=== PATIENT | female | born 1970 | race Caucasian/White ===

== ENCOUNTER 2017-07-20 08:39 | Observation (INO) | payer BC, SELFPAY ==
[2017-07-20 09:22] LABS: #Eosinphils 0.2 thou/uL (0.0-0.7); #Lymphocytes 1.1 thou/uL (1.20-3.40); #Monocytes 0.5 thou/uL (0.11-0.59); %Basophils 0.2 % (0.0-1.0); %Eosinophils 1.5 % (0.0-10.0); %Lymphocytes 7.8 % (21.0-51.0); %Monocytes 3.4 % (0.0-10.0); %Neutrophils 87.2 % (42.0-75.0); Hemoglobin 14.8 g/dL (12.0-16.0); Mean Corpuscular HGB CONC 32.9 g/dL (32.0-36.0); Mean Corpuscular Hemoglobin 30.2 pg (27.0-31.0); Mean Corpuscular Volume 91.6 fl (81.0-99.0); Mean Platelet Volume 6.8 fL (7.4-10.4); Platelet Count 348 thou/uL (130-400); RBC Distribution Width 12.6 % (11.5-14.5); White Blood Cell (WBC) Count 13.7 thou/uL (4.8-10.8)
[2017-07-20 09:33] LABS: PTT 28.4 SEC (22.9-36.1); Prothrombin Time 13.8 SEC (12.0-14.7)
[2017-07-20 09:43] LABS: D-Dimer Test Less than 0.27 *mcg/mL (0.27-0.43)
[2017-07-20 09:45] LABS: Digoxin Less than 0.15 ng/mL (0.8-2.0)
[2017-07-20 09:51] LABS: CKMB 1.5 ng/mL (0-6.6); Troponin I Less than 0.010 ng/mL (< 0.028)
[2017-07-20 09:55] LABS: ALT (SGPT) 19 U/L (8-55); AST (SGOT) 29 U/L (5-34); Albumin 4.4 g/dL (3.5-5.0); Alkaline Phosphatase 155 U/L (40-150); Anion Gap 18 mmol/L (10-20); BUN (Urea Nitrogen) 18 mg/dL (7.0-18.7); Bilirubin, Total 0.8 mg/dL (0.2-1.2); CK (CPK) 101 U/L (29-168); Calc. Creatinine Clearance 0 mL/min (70-130); Calcium 9.8 mg/dL (7.8-10.44); Carbon Dioxide 23 mmol/L (22-29); Chloride 102 mmol/L (98-107); Estimated GFR-MDRD 57; Globulin 5.6 g/dL (2.4-3.5); Glucose 152 mg/dL (70-105); Lipase 6 U/L (8-78); Potassium 5.1 mmol/L (3.5-5.1); Sodium 137 mmol/L (136-145)
--- NOTE | 2017-07-20 10:42 | RAD ---
CHEST 1 VIEW: HISTORY: A 46-year-old female with a history of chest pain and weakness and vomiting. FINDINGS: Heart size is within normal limits. Monitor leads overlie the chest. IMPRESSION: No acute intrathoracic disease. Mild bilateral pleural thickening. POS: [facility]
--- NOTE | 2017-07-20 11:04 | CT ---
CT ANGIOGRAM CHEST WITH 3D RENDERING: HISTORY: A 46-year-old female with a history of chest pain. FINDINGS: Minimal dependent changes in the posterior lower lung zones. No significant Ct evidence for acute pu lmonary embolism. No pericardial effusion or pleural effusion. No significant acute pulmonary paren chymal disease. No mediastinal mass or adenopathy. Visualized upper abdomen is unremarkable. IMPRESSION: No significant CT evidence for acute pulmonary embolism. POS: [facility]
[2017-07-20] MEDS ORDERED: Mag-Al 1200 mg/1200 mg/30 ML UDCUP PO PRN (11:21)
[2017-07-20] MEDS ORDERED: Calcium Carbonate 500 MG ChewTAB PO PRN (11:21)
[2017-07-20] MEDS ORDERED: Ondansetron HCl/PF 4 MG/2 ML Vial IVP PRN (11:21)
[2017-07-20] MEDS ORDERED: cloNIDine 0.1 MG TAB PO PRN (11:21)
[2017-07-20] MEDS ORDERED: Acetaminophen 325 MG TAB PO PRN (11:21)
[2017-07-20] MEDS ORDERED: Nitroglycerin 0.4 MG TAB (25 Tab Bottle) PO PRN (11:21)
[2017-07-20] MEDS ORDERED: Lorazepam 1 MG TAB PO PRN (11:21)
[2017-07-20] MEDS ORDERED: Senokot 8.6 MG TAB PO PRN (11:21)
[2017-07-20] MEDS ORDERED: Benzonatate 100 MG CAP PO PRN (11:21)
[2017-07-20] MEDS ORDERED: hydrALAZINE 20 MG/ML VIAL SLOW IVP PRN (11:21)
[2017-07-20] MEDS ORDERED: Bisacodyl 5 MG TAB PO PRN (11:21)
[2017-07-20] MEDS ORDERED: Diabetic Tussin 200 MG/10 ML UDCUP PO PRN (11:21)
[2017-07-20 12:17] VITALS: BMI 50.8
[2017-07-20 12:18] LABS: Cardiac Risk 3.7 (Less than 4.5)
[2017-07-20 12:22] LABS: Troponin I Less than 0.010 ng/mL (< 0.028)
[2017-07-20 12:38] LABS: Hemoglobin A1c 6.4 % (4.0-6.0)
[2017-07-20] MEDS ORDERED: ISOVUE-370 76%-LOCM 1 ML ONE (12:43)
--- NOTE | 2017-07-20 12:50 | HP ---
DATE OF ADMISSION: 07/20/2017 PRIMARY CARE PHYSICIAN: None. CHIEF COMPLAINT: Chest pain, nausea, and vomiting. HISTORY OF PRESENTING ILLNESS: Ms. Jose is a 46-year-old female without any significant past medical history because mainly of lack of any medical care, who came to the emergency room with the above-me ntioned complaint. History is mainly obtained by the patient herself. Electronic medical records ortiz ve been reviewed. Case has been discussed with the admitting ER physician. Ms. Jose reports that while she was getting off of work today, she had sudden onset of sharp chest pa in on the left side. 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 She was waiting on her coworke r to drive her home. 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 She has never had these sympt oms before. She has no recent illnesses and has been feeling actually very well up until this episod e this morning. Her chest pain was kind of sharp and lasted until she was brought here. It was loca billy in the left upper chest, traveling down towards the center. It was associated with nausea and vo miting x3. She could not recall any exacerbating or relieving symptoms. It was not associated with any diaphoresis, palpitations, or shortness of breath. She has not been having any flu-like symptoms recently. She denies any orthopnea, PND or edema. She denies any diarrhea or abdominal pain. She denies any dysuria, frequency or urgency. She has not sought any medical care in multiple years because she says "the doctor is for sick people ." She has strong family history of stroke in her father as well as almost all the family members wi th diabetes, but has never gotten herself checked. Upon presentation to the emergency room, her blood pressure was high at 175/112 with temperature of 9 8.9. Her initial workup included chest x-ray which was unremarkable. EKG had some repolarization ch anges. Cardiac enzymes were normal. She had mildly elevated D-dimer. For this reason, she underwen t a CT angio which was negative for any pulmonary embolism. She is now being admitted for further ri sk stratification. PAST MEDICAL HISTORY: None that the patient know of. PAST SURGICAL HISTORY: 1. Appendectomy 2. Cholecystectomy. SOCIAL HISTORY: She has no history of drug, tobacco or alcohol abuse. FAMILY HISTORY: Significant for stroke in her father who had last year. He was an active smoke r. Multiple family members with diabetes and hypertension. She denies any cardiac history in her fa adolfo members. ALLERGIES: No known medication allergies. CURRENT MEDICATIONS: None. REVIEW OF SYSTEMS: The following complete review of systems was negative, unless otherwise mentioned in the HPI or below: Constitutional: Weight loss or gain, ability to conduct usual activities. Skin: Rash, itching. Eyes: Double vision, pain. ENT/Mouth: Nose bleeding, neck stiffness, pain, tenderness. Cardiovascular: Palpitations, dyspnea on exertion, orthopnea. Respiratory: Shortness of breath, wheezing, cough, hemoptysis, fever or night sweats. Gastrointestinal: Poor appetite, abdominal pain, heartburn, nausea, vomiting, constipation, or diarr hea. Genitourinary: Urgency, frequency, dysuria, nocturia. Musculoskeletal: Pain, swelling. Neurologic/Psychiatric: Anxiety, depression. Allergy/Immunologic: Skin rash, bleeding tendency. It is negative except for those mentioned in the history and physical. PHYSICAL EXAMINATION: VITAL SIGNS: Most recent vital signs include temperature 98.5, pulse of 101, respirations 18, satura ting 95% on room air, and blood pressure 159/74. GENERAL: No acute distress. She does appear a little bit tired and sleepy, but she is awake, alert, and oriented x3. HEENT: Mucous membrane is moist and pink. No oropharyngeal exudate or erythema. Head is normocepha lic, atraumatic. Pupils are equal, reactive to light and accommodation. Extraocular movements intac t. NECK: Supple without any lymphadenopathy, JVD or bruit. CHEST: Clear to auscultation without any wheezing, rales or rhonchi. Rhythm is regular without any murmur, rubs or gallops. ABDOMEN: Morbidly obese, soft, nontender, nondistended with positive bowel sounds. EXTREMITIES: Free of any cyanosis, clubbing, or edema. NEUROLOGIC: Examination is nonfocal. SKIN: Free of any rashes or bruises. Feels warm and dry to touch. PSYCHIATRIC: Flat affect. LABORATORY DATA AND IMAGING DATA: 1. Her CBC shows WBCs elevated at 13.7 with 87% neutrophils. 2. Her D-dimer actually was less than 0.27. 3. Serum chemistries show blood sugar of 152, alkaline phosphatase 155. Cardiac enzymes negative. BNP normal. Lipase negative. 4. Chest x-ray by my review has no evidence to suggest pulmonary infiltrate, effusion or edema. 5. CT angio is negative for any PE. 6. Twelve lead EKG, Q-inverted T waves and leads are heard and AVF. QTC of 461 milliseconds. Sinus tachycardia at 102 beats per minute by my review. IMPRESSION AND PLAN: 1. Chest pain. The patient has multiple risk factors for coronary artery disease including morbid o besity family history and uncontrolled hypertension and her age of course. At this time, we will con tinue to trend serial cardiac enzymes and obtain a nuclear medicine stress test for further risk stra tification. We will obtain lipid panel. We will start her on full dose aspirin and started her on a beta nathen for blood pressure control as well as cardioprotective effects. Further management morteza l depend upon her clinical course. 2. Family history of diabetes and hyperglycemia. We will check hemoglobin A1c. 3. Morbid obesity. 4. Hypertension. The patient will be started on medications. I have counseled her with regards to this and emphasized the need for medication compliance and followup with a physician as an outpatient . She does appear quite nonchalant about this. 5. Leukocytosis. Influenza swab has been done and is unremarkable. No other evidence to suggest an y infection. However, we will check her urinalysis especially because she also has had some nausea a nd vomiting. 6. Code status: FULL CODE. 7. Deep venous thrombosis and gastrointestinal prophylaxis, on p.r.n. medications. DISPOSITION: Ms. Jose is being admitted for further workup and rule out acute coronary syndrome for chest pain. Further management will depend upon her clinical course. Estimated length of stay at [facility] time is less than 2 midnights.
[2017-07-20] MEDS: Sodium Chloride 0.9% 1,000 ML IV SCH (15:32)
--- NOTE | 2017-07-20 17:44 | CT ---
CT ABDOMEN AND PELVIS WITHOUT CONTRAST: Comparison: CTA chest 07-20-17 at 9:28 a.m. History: Vomiting, nausea. Technique: Multiple contiguous axial images were obtained in a CT of the abdomen and pelvis without c ontrast. Coronal reformats were performed. FINDINGS: The patient is status post cholecystectomy. No biliary dilatation is seen. Contrast is seen in both r enal collecting systems and in the urinary bladder from recent contrast examination. No free air, lane e fluid, or stranding changes are seen in the abdomen or pelvis. The liver, kidneys, adrenal glands, spleen and pancreas are unremarkable, although evaluation is limi billy without IV contrast. There is scattered diverticula in the colon. The small bowel is unremarkable. The reproductive organs are unremarkable. No abdominal or pelvis lymphadenopathy are seen. Degenerative changes are seen in the spine. The visualized inferior thorax and abdominal wall soft tissues are unremarkable. IMPRESSION: 1. No evidence of acute intraabdominal/pelvic adenopathy. 2. Diverticulosis without evidence of acute diverticulitis. POS: [facility]
[2017-07-20] MEDS: Metoprolol Tartrate 25 MG TAB PO SCH (20:34)
[2017-07-20] MEDS: Famotidine 20 MG TAB PO SCH (20:34)
[2017-07-20 20:50] LABS: Bilirubin Negative (Negative); Blood, Urine Negative (Negative); Clarity CLOUDY (Clear); Glucose, Urine (Dipstick) Negative (Negative); Leukocyte Negative (Negative); Nitrite Negative (Negative); Protein, Urine (Dipstick) Negative (Neg-Trace)
[2017-07-20 20:53] LABS: Specific Gravity, Urine 1.048 (1.002-1.036)
[2017-07-20 20:54] LABS: Bacteria/HPF 3+ HPF (None Seen); Hyaline Casts/LPF 4-6 HYALINE CAST LPF (0-3 Hyaline); Pathc Cast-AUWi Flag 0.54 (0-2.49)
[2017-07-20 21:03] LABS: RBC/HPF 0-3 HPF (0-3)
[2017-07-21] MEDS: Sodium Chloride 0.9% 1,000 ML IV SCH (04:14)
[2017-07-21 05:07] LABS: #Eosinphils 0.2 thou/uL (0.0-0.7); #Lymphocytes 1.6 thou/uL (1.20-3.40); #Monocytes 0.5 thou/uL (0.11-0.59); %Eosinophils 3.4 % (0.0-10.0); %Lymphocytes 30.4 % (21.0-51.0); %Monocytes 9.7 % (0.0-10.0); %Neutrophils 56.6 % (42.0-75.0); Hemoglobin 13.1 g/dL (12.0-16.0); Mean Corpuscular HGB CONC 33.5 g/dL (32.0-36.0); Mean Corpuscular Volume 92.6 fl (81.0-99.0); Mean Platelet Volume 6.4 fL (7.4-10.4); Platelet Count 289 thou/uL (130-400); RBC Distribution Width 12.3 % (11.5-14.5); Red Blood Cell (RBC) Count 4.22 mill/uL (4.20-5.40); White Blood Cell (WBC) Count 5.2 thou/uL (4.8-10.8)
[2017-07-21 05:23] LABS: Anion Gap 11 mmol/L (10-20); BUN (Urea Nitrogen) 13 mg/dL (7.0-18.7); Calc. Creatinine Clearance 186 mL/min (70-130); Calcium 8.6 mg/dL (7.8-10.44); Carbon Dioxide 24 mmol/L (22-29); Chloride 104 mmol/L (98-107); Estimated GFR-MDRD 78; Glucose 117 mg/dL (70-105); Potassium 4.2 mmol/L (3.5-5.1); Sodium 135 mmol/L (136-145)
[2017-07-21] MEDS ORDERED: Enoxaparin Sodium 40 MG/0.4 ML SYRINGE SC SCH (09:00)
[2017-07-21] MEDS ORDERED: Aspirin 325 MG TAB PO SCH (09:00)
--- NOTE | 2017-07-21 12:23 | NM ---
MYOCARDIAL PERFUSION EVALUATION: INDICATION: Chest pain. RADIOPHARMACEUTICAL: 30 mCi of Technetium 99m sestamibi IV with stress and 30 mCi of Technetium 99m sestamibi IV with rest . FINDINGS: When comparing the rest and stress images, there is no definite reversible myocardial perfusion defec t. Wall motion and thickening appear within normal limits. The LVEF appears slightly diminished at 48%. IMPRESSION: 1. No scintigraphic evidence to of reversible myocardial ischemia. 2. The left ventricular ejection fraction is estimated at 48%. POS: [facility]
[2017-07-21 12:33] VITALS: BP 144/74; TEMP 98.1
[2017-07-21] MEDS: Famotidine 20 MG TAB PO SCH (14:02)
[2017-07-21] MEDS: Metoprolol Tartrate 25 MG TAB PO SCH (14:02)
[2017-07-21] MEDS ORDERED: glipiZIDE 5 MG TAB PO SCH (16:30)
--- NOTE | 2017-07-21 21:55 | DIS ---
DATE OF ADMISSION: 07/20/2017 DATE OF DISCHARGE: 07/21/2017 CONDITION AT THE TIME OF DISCHARGE: Stable and improved. DISCHARGE DIAGNOSES: 1. Chest pain, noncardiac. 2. Viral gastroenteritis. 3. New diagnosis of hypertension. 4. New diagnosis of diabetes mellitus. 5. Morbid obesity. 6. Early urinary tract infection. PRIMARY CARE PHYSICIAN: None. The patient is instructed to follow up and find herself a new PCP. DISCHARGE MEDICATIONS: 1. Glipizide 5 mg p.o. b.i.d. 2. Coreg 6.25 mg p.o. b.i.d. 3. Levofloxacin 500 mg daily for 4 more days. CONSULTATIONS: None. PROCEDURES IN THE HOSPITAL: Include; 1. CT angio of the thorax, which is negative for any evidence of pulmonary embolism. 2. CT scan of the abdomen and pelvis without any contrast, which is negative for any acute intraabdo apolinar pathology. She has evidence of diverticulosis without diverticulitis. 3. Nuclear medicine stress test, which shows no evidence of reversible or fixed defect. Her ejectio n fraction is estimated at 48%. HISTORY OF PRESENT ILLNESS: Ms. Jose is a 46-year-old female without any medical care in [facility] and without any significant past medical history who presented to the emergency room with complai nts of one episode of chest pain associated with vomiting. Upon presentation, she was quite hyperten sive with a blood pressure of 175/112. Her initial workup was unremarkable. She was admitted for fu rther workup and rule out acute coronary syndrome. Please see admission history and physical dictate d by myself for further details. HOSPITAL COURSE: The patient had a CT angio done in the emergency room, which was negative for pulmo nary embolism. Serial cardiac enzymes were done and were normal. She underwent a nuclear medicine s tress test, which was also normal. Her cholesterol panel was checked, which were normal. The patien t had episodes of vomiting at the time of the stress test and for this reason, CT scan of the abdomen and pelvis was obtained. This had no intraabdominal pathology. Her symptoms did not happen again. She was chest pain free and did not have any abdominal pain, nausea, vomiting or diarrhea. She was, however, found to be hypertensive and was started on beta-nathen at this point. She also g ave family history of diabetes, significantly in multiple family members and for this reason, hemoglo bin A1c was checked, which was elevated to 6.4. At this time, she is being started on glipizide twic e a day. I have discussed this in detail with her. She has been made aware of the importance of out patient followup with regards to her new diagnosis of hypertension and diabetes mellitus. At this ti me, however, acute coronary syndrome has been ruled out and she will be discharged home. The patient's urine was somewhat consistent with early urinary tract infection. It has been sent for culture. She has been empirically given levofloxacin, given her symptoms of vomiting on presentatio n. She also had mild leukocytosis of WBCs 13.7 with 87% neutrophils upon presentation included. Her leukocytosis has since improved. PHYSICAL EXAMINATION: She was seen and examined prior to discharge. VITAL SIGNS: This morning, includes temperature 98.1, pulse of 70, respirations 18, saturating 93% o n room air and blood pressure 144/74. GENERAL: No acute distress. CHEST: Clear to auscultation. Rate and rhythm is regular. ABDOMEN: Soft, nontender and nondistended. LABORATORY DATA: Sodium 135, blood sugar 117, hemoglobin A1c 6.4 and troponin less than 0.01 x3. BN P less than 10.
--- NOTE | 2017-08-25 11:25 | STRESS ---
Acquisition Time: 2017-07-21 09:03:04 Total Exercise Time: 00:04:00 Test Indications: CHEST PAIN Medications: Protocol: ADENOSINE Max HR: 103 BPM 59% of Pred: 173 BPM Max BP: 132/086 mmHG Max Work Load: 1.0 METS RESTING ECG: NORMAL SINUS RHYTHM AT 71 BPM SYMPTOMS: SHORTNESS OF BREATH APPROPRIATE BLOOD PRESSURE RESPONSE FOR ADENOSINE ECTOPY: [place]ACH ECG RESPONSE: NO SIGNIFICANT CHANGES INTERPRETATION: AWAIT NUCLEAR IMAGES FOR DEFINITIVE DIAGNOSIS Confirmed by YON MOHAMUD ([id number]), videotape editor MIHAI LEYVA ([id number]) on 08/25/2017 11:24:44 AM Referred By: MD Alis Rivera Confirmed By:YON MOHAMUD
--- NOTE | 2017-09-18 14:38 | EKG ---
Test Reason : Blood Pressure : / mmHG Vent. Rate : 102 BPM Atrial Rate : 102 BPM P-R Int : 164 ms QRS Dur : 088 ms QT Int : 354 ms P-R-T Axes : 039 044 005 degrees QTc Int : 461 ms Sinus tachycardia Otherwise normal ECG Confirmed by RODRÍGUEZ BORGES, JENNIFER Somers ([id number]), marketing editor DIGNA BENTON ([id number]) on 09/18/2017 2:38:07 PM Referred By: Confirmed By:JENNIFER ARREGUIN MD
== END 2017-07-21 16:10 | disposition home or self-care (01) ==
LOC: ERS 08:39 → 2SW 10:29
PROVIDERS: ADMIT Internal Medicine; ATTEND Internal Medicine
DX: R07.89 Other chest pain (principal); A08.4 Viral intestinal infection, unspecified; I10 Essential (primary) hypertension; E11.9 Type 2 diabetes mellitus without complications; N39.0 Urinary tract infection, site not specified; E66.01 Morbid (severe) obesity due to excess calories; Z68.43 Body mass index [BMI] 50.0-59.9, adult; Z82.3 Family history of stroke; Z91.018 Allergy to other foods; Z90.49 Acquired absence of other specified parts of digestive tract
CPT/HCPCS: 36415; 71045; 71275; 74176; 78452; 80048; 80053; 80061; 80162; 81001; 82550; 82553; 83036; 83690; 83880; 84484; 85025; 85379; 85610; 85730; 87086; 87804; 93005; 93017; 94760; 96374; A9500; G0378; J0153; J1650; J1956; J2405

== ENCOUNTER 2019-01-03 08:53 | Emergency (ER) | payer BC ==
[2019-01-03] MEDS ORDERED: Ketorolac Tromethamine 30 MG/ML VIAL ONE (09:22)
--- NOTE | 2019-01-03 09:31 | RAD ---
XR Knee Lt 4 View STANDARD HISTORY: Knee pain COMPARISON: None. FINDINGS: There are arthritic changes of the knee with spurring of the medial compartment and mild marsha int space narrowing, there is minimal patellofemoral spur formation is seen. No Joint effusion or fracture. IMPRESSION: Mild arthritic changes of the knee mainly related to medial compartment degenerative bravo yonny
== END 2019-01-03 10:07 | disposition home or self-care (01) ==
LOC: ERS 08:53
DX: M17.12 Unilateral primary osteoarthritis, left knee (principal); I10 Essential (primary) hypertension; E11.9 Type 2 diabetes mellitus without complications; Z79.899 Other long term (current) drug therapy
CPT/HCPCS: 96372; 99283; J1885

== ENCOUNTER 2019-03-29 07:14 | Outpatient (CLI) | payer BC ==
--- NOTE | 2019-03-29 11:57 | MRI ---
LEFT KNEE MRI WITHOUT IV CONTRAST: HISTORY: Left knee tenderness along the medial joint line. FINDINGS: Extremely large body habitus severely lowers the sensitivity of this study with marked image degradat ion. No overt joint effusion. Evidence for a somewhat complex-appearing tear involving the posterio r horn and posterior root of the medial meniscus. Lateral meniscus appears unremarkable. Anterior a nd cruciate ligaments appear intact. Lateral ligament complexes appear unremarkable. No evidence fo r abnormal marrow signal. IMPRESSION: Very severely limited study. Evidence for complex tear involving the posterior horn and posterior ro ot meniscus. POS: [facility]
== END 2019-03-29 07:15 | disposition home or self-care (01) ==
LOC: BICMRI 07:14
DX: S83.207A Unspecified tear of unspecified meniscus, current injury, left knee, initial encounter (principal)